=== PATIENT | female | born 1990 | race Caucasian/White ===

== ENCOUNTER 2022-04-19 05:55 | Inpatient (IN) | payer OTHER ==
[~2022-04-19] VITALS: Ht 157.5 cm; Wt 96.2 kg
[~2022-04-19 05:55] MED LIST: ATIVAN1 MG; CIPRO500 MG PO; CRUTCH1 EACH; DEPO-PROVE150 MG/1 M IM; GINGER250 MG PO; IBUPROFEN600 MG PO; MINIPRESS1 MG PO; MIRENA1 EACH IY; NORCO 10-325 T1 EACH PO; PRENATAL TABLE1 EAC1 PO; PYRIDIUM200 MG PO; TYLENOL325 MG PO; ZOLOFT100 MG PO; ZOLOFT50 MG PO; ZYPREXA10 M1 IM
--- NOTE | 2022-04-20 16:54 | PR ---
[facility] [address] [facility] [place], [place] [address] Signed PP Progress Notes Datetime Report Generated by CPN: 04/20/2022 16:54 SUBJECTIVE: [id number] Pain: Within Normal Limits Nausea/Vomiting: Denies Flatus: Yes Bowel Movement: No Vital Signs: [id number] Vital Signs: Reviewed; Within Normal Limits Cardiovascular: Normal Respiratory: Normal Abdomen/Uterus: Normal Lochia: Normal Vulva/Perineum: Not Done Breasts: Not Done CVA Tenderness: Normal Extremities: Normal Incision: Not Applicable Progress: Normal Exam Comments: Fundus firm U-2 nontender IMPRESSION/PLAN/PROCEDURES: [id number] Impression: Normal Progression Plan: Discharge Progress Notes: Pt seen and examined. Doing well. Ambulating, voiding, and tolerating full diet. well. No fevers/chill or other concerns. Desires d/c home. Hgb 12.7 Reviewed d/c instructions in detail w/ pt. All questions answered. Planning IUD pp contraception. Signing Physician: Mitch Yañez DO Copies: ~ *Electronically Signed* 04/20/22 7603 MITCH YAÑEZ DO PATIENT NAME: ERIK OJEDA PROGRESS NOTE DATE OF : 88 PHYSICIAN: MITCH YAÑEZ DO RPT #: [id number] REPORT IS CONFIDENTIAL AND NOT TO BE RELEASED WITHOUT AUTHORIZATION
== END 2022-04-20 17:33 | disposition home or self-care (01) | DRG 806 ==
LOC: FBCO 05:55 → FBC 06:06
PROVIDERS: ADMIT Obstetrics & Gynecology; ATTEND Obstetrics & Gynecology
PROC: 10E0XZZ Delivery of Products of Conception, External Approach (ICD-10-PCS; principal; 2022-04-19)
PROC: 10907ZC Drainage of Amniotic Fluid, Therapeutic from Products of Conception, Via Natural or Artificial Opening (ICD-10-PCS; 2022-04-19)
DX: O42.02 Full-term premature rupture of membranes, onset of labor within 24 hours of rupture (principal); N39.0 Urinary tract infection, site not specified; Z37.0 Single live birth; O99.824 Streptococcus B carrier state complicating childbirth; Z3A.40 40 weeks gestation of pregnancy; F41.8 Other specified anxiety disorders; O99.344 Other mental disorders complicating childbirth; Z88.5 Allergy status to narcotic agent; Z79.899 Other long term (current) drug therapy; Z87.891 Personal history of nicotine dependence
CPT/HCPCS: 36415; 85027; 86850; 86900; 86901; 87502; A9270; J2540; J7121; U0003